=== PATIENT | male | born 1935 ===

== ENCOUNTER 2023-08-23 09:31 | Outpatient (RCR) | payer MEDICARE, OTHER, SELFPAY | END 2023-08-24 15:13 | disposition home or self-care (01) | LOC: RPT 09:31 | PROVIDERS: ATTENDING PHYSICIAN Internal Medicine; FAMILY PHYSICIAN Family Medicine | DX: K59.02 Outlet dysfunction constipation (principal); M62.89 Other specified disorders of muscle; Z73.6 Limitation of activities due to disability; R27.8 Other lack of coordination | CPT/HCPCS: 97530 ==